=== PATIENT | female | born 1980 | race Caucasian/White ===

== ENCOUNTER 2016-08-20 19:02 | Emergency (ER) | payer OTHER ==
--- NOTE | 2016-08-20 21:05 | ED ORDER SUMMARY ---
..... Patient: LAURA HERNANDEZ OrderSheet [facility] VisitID: [id number] [place] [address] 35y, F Registration Date/Time: 08/20/2016 ORDER SHEET Weight: 106.5 kg (stated) Allergies: Chlorexadine, Clindamycin HCl, Latex, plastic tape , Sulfa Antibiotics GENERAL ORDERS: Urine Urgent (20:08/20/2016 JCoates) (20:13 CBradburn R.N.) UA-Culture if indicated Urgent (20:08/20/2016 JCoates) (20:13 CBradburn R.N.) MEDICATION ORDERS: Percocet PO 10/650 mg (NOW) (20:08/20/2016 JCoates) (Ack 20:14 CBradburn R.N.) (20:22 CBradburn R.N.) IV FLUIDS: ORDER SHEET NOTES: [Electronically signed by Maggie Torrez R.N. (:08/20/2016)] [Electronically signed by Clay Greco (23:08 08/20/2016)] [Electronically locked/signed by Maggie Torrez R.N. (:08/20/2016)]
--- NOTE | 2016-08-20 21:05 | ED NURSING NOTES ---
Clinical Report - Nurses [facility] [address] [address] 08/20/2016 19:02 Patient: LAURA HERNANDEZ TRIAGE Triage time 19:Aug 20 2016. Acuity: LEVEL 3. Chief Complaint: RIGHT LOWER EXTREMITY PAIN and SWELLING. LEFT LOWER EXTREMITY PAIN and SWELLING. SEPSIS SCREEN: Sepsis Screen: negative. Negative (no infection suspected/documented). CARISA COMA SCORE: Carisa Coma Scale: 15- eyes open spontaneously (4); best verbal response- oriented x 4 (5); best motor response- obeys commands (6). --19:21 Irina Chavez 19:16 08/20/16. BP: 127/65. HR: 80. RR: 20. O2 saturation: 100% on room air. Temp: 98 F (oral). Pain level now: 01/11. --19:21 Irina Chavez. Weight: 106.5 kg stated. Height/Length: 63 inches Per Patient. BMI: 41.6. --19:18 Irina Chavez. Medications Levothyronine 5mcg, daily. --19:19 Irina Chavez Omeprazole Oral. --19:19 Irina Chavez Sertraline HCl Oral. --19:19 Irina Chavez Oxycodone-Acetaminophen Oral. --19:19 Irina Chavez Metoprolol Tartrate Oral. --19:19 Irina Chavez Claritin Oral 10 mg, daily. --19:20 Irina Chavez. Allergies Chlorexadine. Clindamycin HCl. Latex. plastic tape . Sulfa Antibiotics. --19:20 Irina Chavez. Medication/allergy information source: the patient. --19:21 Irina Chavez. History Arrived by private vehicle. Historian: patient. Unaccompanied. Primary physician (lucy alegre). No injury occurred. This occurred (3 days). ( Patient reports bilateral leg swelling of the ankles and calfs. She reports pain from her knees down to her ankles. She denies injury. She reports lower back pain on the right side which started today.). She has had trouble walking. ( Lower back pain on right side). PAST MEDICAL HX: Immunizations: up-to-date. Last normal menstrual period- 2 days ago. SOCIAL HX: Never smoker. Occasional alcohol use. History of drug use: marijuana. ABUSE ASSESSMENT: No report of abuse. FALL RISK ASSESSMENT: Fall risk assessment completed. No fall risk identified. NUTRITIONAL RISK ASSESSMENT: The nutritional risk assessment revealed no deficiencies. FUNCTIONAL ASSESSMENT: Functional assessment: no impairments noted. LEARNING NEEDS ASSESSMENT: The learning needs assessment revealed no barriers. SKIN INTEGRITY ASSESSMENT: Skin integrity risk assessment completed. No skin integrity risk identified. --19:21 Irina Chavez. PROBLEMS: Pyelonephritis. Diarrhea. Vomiting. Fibromyalgia. Ureterolithiasis. UTI - Urinary Tract Infection. Palpitations. Gastroenteritis. [place] syndrome . Gastric bypass. Immunizations. LNMP - Last Normal Menstrual Period. Anxiety disorder. Thyroid Disease. Depression. --19:20 Irina Chavez. ADDITIONAL SURGERIES: Appendectomy. Cholecystectomy. ERCP. Foot. Gastric bypass. Laparoscopy. Sinus Surgery. --19:20 Irina Chavez. Interventions ID band on patient. To treatment room. --19:21 Irina Chavez. PHYSICAL ASSESSMENT GENERAL / NEURO / PSYCH: Oriented X 4. Alert. Appears in no acute distress. EXTREMITIES: Bilateral 1+ edema of the lower extremities involving both ankles and both lower legs. Extremity pulses are within normal limits. Right knee: tenderness and erythema. Right leg: tenderness. Right ankle: tenderness and swelling. Left knee: tenderness and erythema. Left leg: tenderness. Left ankle: tenderness and swelling. SKIN: Skin intact. Skin is warm and dry. --19:22 Irina Chavez. NURSING PROGRESS NOTES :08/20/16. Pulse oximeter and NIBP monitor placed on patient; monitor alarms on. Patient gowned. Reassurance given to the patient. Two patient identifiers checked. Call light placed in reach. Side rails up x 1. Bed placed in lowest position. Brakes of bed on. Patient ready for evaluation- chart flagged and ED physician notified. --19:22 Irina Chavez Patient ID band checked for patient name and birthdate: patient confirmed. Instructions provided to collect clean catch urine and patient verbalized understanding. Clean catch urine collected with return of yellow-colored clear urine; sample sent to lab for urinalysis. Specimen labeled in the presence of the patient. --19:37 Irina Chavez 20:18 08/20/2016 Percocet (Oxycodone-Acetaminophen) PO 10/650 mg Tablets 2 tab given. Allergies verified, confirmed 5 rights and sedative warning given to the patient. --20:22 Maggie Torrez R.N. DISPOSITION / DISCHARGE Condition at departure: unchanged and stable. No learning barriers present. Discharge instructions provided and reviewed with the patient. Activity restrictions (rest) reviewed. Work note given. Patient verbalized understanding. Written instructions provided in Cuban. The patient was discharged home and accompanied by spouse. She left the Emergency Department ambulatory and via private vehicle. Spouse driving (pt instructed not to drive for 8 hours due to pain medicine given, pt acknowledged understanding and called spouse.). --21:25 Maggie Torrez R.N. 21:18 08/20/16. BP: 119/61 taken on the left arm, while lying. HR: 82 (regular and normal rate). RR: 18 (regular and unlabored). O2 saturation: 100% on room air. Temp: deferred. Pain level now: 8/10. Additional comments: md AWARE OF PAIN, PT GIVEN PAIN MEDICINE EARLIER ORALLY. --21:25 Maggie Torrez R.N. Departure time: 2117. --21:26 Maggie Torrez R.N. Locked/Released at 08/20/2016 21:26 by Maggie Torrez R.N.
--- NOTE | 2016-08-20 21:05 | ED ORDER SUMMARY ---
..... Patient: LAURA HERNANDEZ OrderSheet [facility] VisitID: [id number] [place] [address] 35y, F Registration Date/Time: 08/20/2016 ORDER SHEET Weight: 106.5 kg (stated) Allergies: Chlorexadine, Clindamycin HCl, Latex, plastic tape , Sulfa Antibiotics GENERAL ORDERS: Urine Urgent (20:08/20/2016 JCoates) (20:13 CBradburn R.N.) UA-Culture if indicated Urgent (20:08/20/2016 JCoates) (20:13 CBradburn R.N.) MEDICATION ORDERS: Percocet PO 10/650 mg (NOW) (20:08/20/2016 JCoates) (Ack 20:14 CBradburn R.N.) (20:22 CBradburn R.N.) IV FLUIDS: ORDER SHEET NOTES: [Electronically signed by Maggie Torrez R.N. (:08/20/2016)] [Electronically signed by Clay Greco (23:08 08/20/2016)] [Electronically locked/signed by Maggie Torrez R.N. (:08/20/2016)]
--- NOTE | 2016-08-20 21:05 | ED CLINICAL REPORT ---
Clinical Report - Physicians/Mid Levels [facility] [address] [place] [address] 08/20/2016 19:02 [id number] Time Seen: 20:03 Aug 20 2016. Arrived- By private vehicle. Historian- patient. HISTORY OF PRESENT ILLNESS Chief Complaint: ( bilateral lower leg swelling and right sided low back pain.). At its maximum, severity described as moderate. Modifying factors- worsened by walking. Not relieved by anything. This started 2 - 3 days ago. It was gradual in onset and has been constant. No fatigue or weakness. (patient says for the last few days her lower legs have been aching when she is walking. she also thinks she might have a kidney infection as her back is hurting.). Similar symptoms previously: None. Recent medical care: Not recently seen/assessed. REVIEW OF SYSTEMS No fever, cough, abdominal pain, nausea or vomiting. No chills, difficulty with urination, skin rash or headache. All systems otherwise negative, except as recorded above. PAST HISTORY See nurses notes. multiple. see nurse's notes. SOCIAL HISTORY Never smoker. Alcohol use. ADDITIONAL NOTES The nursing notes have been reviewed. PHYSICAL EXAM Appearance: Alert. No acute distress. Eyes: Pupils equal, round and reactive to light. Eyes normal inspection. ENT: Nose normal. Pharynx normal. Neck: Normal inspection. Neck supple. CVS: Normal heart rate and rhythm. Heart sounds normal. Respiratory: No respiratory distress. Breath sounds normal. Abdomen: No visible injury. Soft and nontender. No mass. Back: No ecchymosis. No rash. Mild soft-tissue tenderness in the right mid and lower lumbar area. No CVA tenderness. Skin: Skin warm and dry. Normal skin color. No rash. Normal skin turgor. Extremities: Extremities exhibit normal ROM. No lower extremity edema. Right leg: mild tenderness and swelling located in the anterior aspect of upper leg. Neurovascular intact distally. No erythema, abrasion, ecchymosis or deformity. Left leg: mild tenderness and swelling located in the anterior aspect of upper leg. Neurovascular intact distally. No erythema, laceration, abrasion, ecchymosis or puncture wound. No foreign body or deformity. Neuro: No motor deficit. No sensory deficit. LABS, X-RAYS, AND EKG Laboratory Tests: UA-Culture if indicated: (TIANA: 08/20/2016 19:30) ( MsgRcvd 08/20/2016 20:38) Final results Test Result Flag Units (Reference) URINE COLOR YELLOW URINE APPEARANCE CLEAR URINE GLUCOSE NEGATIVE (NEGATIVE) URINE BILIRUBIN NEGATIVE (NEGATIVE) URINE KETONE NEGATIVE (NEGATIVE) URINE SPECIFIC GRAVITY >= 1.030 (1.010-1.030) URINE PH 5.5 (5.0-8.0) URINE PROTEIN NEGATIVE (NEGATIVE) URINE UROBILINOGEN 0.2 EU/dL (0.2-1.0) URINE NITRITE NEGATIVE (NEGATIVE) URINE BLOOD NEGATIVE (NEGATIVE) URINE LEUK ESTERASE NEGATIVE (NEGATIVE) URINE RBC 0-1 rbc/hpf (0-1) URINE WBC 0-1 wbc/hpf (0-1) URINE EPITHELIAL CELLS 1-3 EPI/hpf (0-5) URINE BACTERIA FEW (1+) (NONE SEEN) URINE COMMENT CULT NOT INDICATED 20-40 CALCIUM OXALATE CRYSTALS/HPFURINE CULTURES ARE SET-UP BASED ON THE FOLLOWING CRITERIA:POSITIVE NITRITEPOSITIVE LEUKOCYTE ESTERASEGREATER THAN 10 WHITE BLOOD CELLSMODERATE (2+) OR GREATER BACTERIA Urine: (TIANA: 08/20/2016 19:30) ( MsgRcvd 08/20/2016 20:17) Final results Test Result Flag Units (Reference) URINE NEGATIVE . PROGRESS AND PROCEDURES Course of Care: 20:08/20/16. Patient stable. No evidence of infection or cauda equina. We will get a UA to rule out infection but otherwise treat for acute exacerbation of her fibromyalgia. She'll need to follow up with her pain management provider after this. 21:05 08/20/16. UA essentially normal. Probable contaminant. We'll discharge home. Discharge decision based on the following: patient's condition is stable; patient's condition is improved; patient's exam is improved; no abnormal test results; multiple repeat evaluations; social support is good; clinical impression is consistent with outpatient treatment. CLINICAL IMPRESSION Fibromyalgia Acute pain in the lower back, right lower extremity (lower leg) and left lower extremity (lower leg). INSTRUCTIONS Rest at home today and tomorrow. Return to work in two days. No dietary restrictions. Lose weight. Warnings: SEDATIVE MEDICATION: You were given sedative medication during your visit. Do not drive or operate dangerous machinery for 8 hours. GENERAL WARNINGS: Return or contact your physician immediately if your condition worsens or changes unexpectedly, if not improving as expected, or if other problems arise. Specifically return if vomiting, breathing difficulty or fever. Follow-up: Follow up with your doctor in three days even if well. Understanding of the discharge instructions verbalized by patient. (Electronically signed by Clay Greco, 08/20/2016 23:08)
--- NOTE | 2016-08-20 23:08 | ED DISCHARGE INSTRUCTIONS ---
Patient: LAURA HERNANDEZ General Instructions [facility] VisitID: [id number] [place] [address] 35y, F Registration Date/Time: 08/20/2016 Fibromyalgia Acute pain in the lower back, right lower extremity (lower leg) and left lower extremity (lower leg). INSTRUCTIONS Rest at home today and tomorrow. Return to work in two days. No dietary restrictions. Lose weight. Warnings: SEDATIVE MEDICATION: You were given sedative medication during your visit. Do not drive or operate dangerous machinery for 8 hours. GENERAL WARNINGS: Return or contact your physician immediately if your condition worsens or changes unexpectedly, if not improving as expected, or if other problems arise. Specifically return if vomiting, breathing difficulty or fever. Follow-up: Follow up with your doctor in three days even if well. Understanding of the discharge instructions verbalized by patient. ADDITIONAL INFORMATION Fibromyalgia Fibromyalgia is a chronic condition. It causes pain and tenderness in the muscles and soft tissues. It can affect the neck, shoulders, back, chest, hips, buttocks, arms and legs. The pain may be worse in the morning and evening. Sometimes, the pain may occur all day long. The pain may increase with activity, cold or damp weather, anxiety and stress. People with fibromyalgia may experience trouble sleeping and fatigue. Other symptoms include morning stiffness, headaches, painful menstrual periods, tingling and numbness in hands and feet. There may also be problems with thinking clearly and changes in memory. The cause of fibromyalgia is unknown. It may occur along with other diseases. These include rheumatoid arthritis, spinal arthritis, low thyroid, chronic fatigue syndrome, Lyme disease, depression, and sleep disorders. Mild cases of fibromyalgia may improve with stress reduction or lifestyle changes. More severe cases may respond best to a team approach. This may involve your primary care doctor, a firebrick layer helper, physical therapist, and a pain management clinic. Antidepressants are often prescribed to treat this condition. Pain medicines are usually not used to treat this condition over the care home because of their potential for dependence and addiction. Home Care: If your doctor has prescribed medicines, take them as directed. You may use acetaminophen (Tylenol) or ibuprofen (Motrin, Advil) to control pain, unless another pain medicine was prescribed. [NOTE: If you have chronic liver or kidney disease or ever had a stomach ulcer or GI bleeding, talk with your doctor before using these medicines.] Rest as needed and get plenty of sleep at night. If you have difficulty sleeping, discuss this with your primary care doctor. There are lifestyle changes and medicines that can help. Try to locate the sources of stress in your life. They may not be obvious! These may include: Daily hassles of life which pile up (traffic jams, missed appointments, car troubles, etc.) Major life changes, both good (new baby, job promotion) and bad (loss of job, loss of loved one) Overload: feeling that you have too many responsibilities and can't take care of all of them at once Feeling helpless, feeling that your problems are beyond what youre able to solve Notice how your body reacts to stress. Learn to listen to your body signals. This will help you take action before the stress becomes severe. Exercise regularly. Studies have shown that fibromyalgia symptoms can be relieved by aerobic exercise. Start an exercise program gradually. Begin with low-impact exercises such as walking and swimming. If you have a chronic illness such as diabetes hypertension or hear disease, talk to your doctor to design a safe exercise program for you. Follow a healthy diet. Limit caffeine and alcohol. If you smoke, ask your doctor to help you stop. Follow Up with your doctor or as advised by our staff, or if symptoms are not controlled by the treatment prescribed. For more information contact: National [place] [employer] and Musculoskeletal and Skin Diseases (NIAMS) 221.368.4739 www.niams.nih.gov Return Promptly or contact your doctor if any of the following occurs: Weakness or loss of feeling in an arm or leg Chest pain that becomes more severe, lasts longer, or spreads into your shoulder, arm, neck, jaw or back Feeling extreme depression, fear, anxiety, or anger toward yourself or others You have been given the following additional information: Fibromyalgia Rest at home today and tomorrow. Return to work in two days. (Electronically signed by Clay Greco, 08/20/2016 23:08)
--- NOTE | 2016-08-20 23:08 | ED MED RECONCILIATION SUMMARY ---
Patient: LAURA HERNANDEZ Medication Reconciliation Report [facility] VisitID: [id number] [address] [place] [address] 35y, F Registration Date/Time: 08/20/2016 Weight: 106.5 kg Height/Length: 63 in. BMI: 41.6 ALLERGIES: Chlorexadine, Clindamycin HCl, Latex, plastic tape , Sulfa Antibiotics The patient's Home Medications are listed below: THE FOLLOWING MEDICATIONS NEED TO BE RECONCILED: Claritin Oral 10 mg, daily Levothyronine 5mcg, daily Metoprolol Tartrate Oral Omeprazole Oral Oxycodone-Acetaminophen Oral Sertraline HCl Oral The source(s) of the original Home Medication information: patient The following Medications were given to the patient in the Emergency Department: Percocet [PO] PO 2 tab, administered: 08/20/2016 8:18:00 PM The following Medications were prescribed to the patient: None.
--- NOTE | 2016-08-20 23:08 | ED DISCHARGE INSTRUCTIONS ---
Patient: LAURA HERNANDEZ General Instructions [facility] VisitID: [id number] [place] [address] 35y, F Registration Date/Time: 08/20/2016 Fibromyalgia Acute pain in the lower back, right lower extremity (lower leg) and left lower extremity (lower leg). INSTRUCTIONS Rest at home today and tomorrow. Return to work in two days. No dietary restrictions. Lose weight. Warnings: SEDATIVE MEDICATION: You were given sedative medication during your visit. Do not drive or operate dangerous machinery for 8 hours. GENERAL WARNINGS: Return or contact your physician immediately if your condition worsens or changes unexpectedly, if not improving as expected, or if other problems arise. Specifically return if vomiting, breathing difficulty or fever. Follow-up: Follow up with your doctor in three days even if well. Understanding of the discharge instructions verbalized by patient. ADDITIONAL INFORMATION Fibromyalgia Fibromyalgia is a chronic condition. It causes pain and tenderness in the muscles and soft tissues. It can affect the neck, shoulders, back, chest, hips, buttocks, arms and legs. The pain may be worse in the morning and evening. Sometimes, the pain may occur all day long. The pain may increase with activity, cold or damp weather, anxiety and stress. People with fibromyalgia may experience trouble sleeping and fatigue. Other symptoms include morning stiffness, headaches, painful menstrual periods, tingling and numbness in hands and feet. There may also be problems with thinking clearly and changes in memory. The cause of fibromyalgia is unknown. It may occur along with other diseases. These include rheumatoid arthritis, spinal arthritis, low thyroid, chronic fatigue syndrome, Lyme disease, depression, and sleep disorders. Mild cases of fibromyalgia may improve with stress reduction or lifestyle changes. More severe cases may respond best to a team approach. This may involve your primary care doctor, a concrete layer, physical therapist, and a pain management clinic. Antidepressants are often prescribed to treat this condition. Pain medicines are usually not used to treat this condition over the jail because of their potential for dependence and addiction. Home Care: If your doctor has prescribed medicines, take them as directed. You may use acetaminophen (Tylenol) or ibuprofen (Motrin, Advil) to control pain, unless another pain medicine was prescribed. [NOTE: If you have chronic liver or kidney disease or ever had a stomach ulcer or GI bleeding, talk with your doctor before using these medicines.] Rest as needed and get plenty of sleep at night. If you have difficulty sleeping, discuss this with your primary care doctor. There are lifestyle changes and medicines that can help. Try to locate the sources of stress in your life. They may not be obvious! These may include: Daily hassles of life which pile up (traffic jams, missed appointments, car troubles, etc.) Major life changes, both good (new baby, job promotion) and bad (loss of job, loss of loved one) Overload: feeling that you have too many responsibilities and can't take care of all of them at once Feeling helpless, feeling that your problems are beyond what youre able to solve Notice how your body reacts to stress. Learn to listen to your body signals. This will help you take action before the stress becomes severe. Exercise regularly. Studies have shown that fibromyalgia symptoms can be relieved by aerobic exercise. Start an exercise program gradually. Begin with low-impact exercises such as walking and swimming. If you have a chronic illness such as diabetes hypertension or hear disease, talk to your doctor to design a safe exercise program for you. Follow a healthy diet. Limit caffeine and alcohol. If you smoke, ask your doctor to help you stop. Follow Up with your doctor or as advised by our staff, or if symptoms are not controlled by the treatment prescribed. For more information contact: [employer] [place] [employer] and Mus[employer] and Skin Diseases (NIAMS) 471.939.8727 www.niams.nih.gov Return Promptly or contact your doctor if any of the following occurs: Weakness or loss of feeling in an arm or leg Chest pain that becomes more severe, lasts longer, or spreads into your shoulder, arm, neck, jaw or back Feeling extreme depression, fear, anxiety, or anger toward yourself or others You have been given the following additional information: Fibromyalgia Rest at home today and tomorrow. Return to work in two days. (Electronically signed by Clay Greco, 08/20/2016 23:08)
--- NOTE | 2016-08-20 23:08 | ED MAR SUMMARY ---
..... Medication Administration Record [facility] [address] [place] [address] Patient: LAURA HERNANDEZ Visit ID: [id number] 35y, F Weight: 106.5 kg Height/Length: 63 in BMI: 41.6 ALLERGIES: Chlorexadine, Clindamycin HCl, Latex, plastic tape , Sulfa Antibiotics Given 20:18 08/20/2016 Maggie Torrez R.N. Medication Administered: PERCOCET [PO] (OXYCODONE-ACETAMINOPHEN), Dose: 2 tab 10/650 mg Tablets PO. Medication Ordered: Percocet PO 10/650 mg (NOW).
--- NOTE | 2016-08-20 23:08 | ED MED RECONCILIATION SUMMARY ---
Patient: LAURA HERNANDEZ Medication Reconciliation Report [facility] VisitID: [id number] [address] [place] [address] 35y, F Registration Date/Time: 08/20/2016 Weight: 106.5 kg Height/Length: 63 in. BMI: 41.6 ALLERGIES: Chlorexadine, Clindamycin HCl, Latex, plastic tape , Sulfa Antibiotics The patient's Home Medications are listed below: THE FOLLOWING MEDICATIONS NEED TO BE RECONCILED: Claritin Oral 10 mg, daily Levothyronine 5mcg, daily Metoprolol Tartrate Oral Omeprazole Oral Oxycodone-Acetaminophen Oral Sertraline HCl Oral The source(s) of the original Home Medication information: patient The following Medications were given to the patient in the Emergency Department: Percocet [PO] PO 2 tab, administered: 08/20/2016 8:18:00 PM The following Medications were prescribed to the patient: None.
--- NOTE | 2016-08-20 23:08 | ED MAR SUMMARY ---
..... Medication Administration Record [facility] [address] [place] [address] Patient: LAURA HERNANDEZ Visit ID: [id number] 35y, F Weight: 106.5 kg Height/Length: 63 in BMI: 41.6 ALLERGIES: Chlorexadine, Clindamycin HCl, Latex, plastic tape , Sulfa Antibiotics Given 20:18 08/20/2016 Maggie Torrez R.N. Medication Administered: PERCOCET [PO] (OXYCODONE-ACETAMINOPHEN), Dose: 2 tab 10/650 mg Tablets PO. Medication Ordered: Percocet PO 10/650 mg (NOW).
== END 2016-08-20 21:18 | disposition home or self-care (01) ==
LOC: ED SRH 19:02
DX: M79.7 Fibromyalgia (principal); M54.5 Low back pain; M79.661 Pain in right lower leg; M79.662 Pain in left lower leg; Z88.1 Allergy status to other antibiotic agents; Z88.2 Allergy status to sulfonamides; Z88.8 Allergy status to other drugs, medicaments and biological substances; Z79.899 Other long term (current) drug therapy; Z91.040 Latex allergy status
CPT/HCPCS: 90004; 93070